=== PATIENT | male | born 1995 | race Caucasian/White ===

== ENCOUNTER 2019-08-26 02:00 | Emergency (ER) | payer MEDICAID ==
[~2019-08-26] VITALS: Ht 177.8 cm; Wt 88.9 kg
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
--- NOTE | 2019-08-26 04:02 | NUR ---
Patient discharged to home in stable condition. Written and verbal after care instructions given. Patient verbalizes understanding of instruction. Pt ambulatory with a steady gait
[2019-08-26 04:03] VITALS: BP 123/66
== END 2019-08-26 04:04 | disposition home or self-care (01) ==
LOC: ER 02:03
DX: S62.340A Nondisplaced fracture of base of second metacarpal bone, right hand, initial encounter for closed fracture (principal); W22.8XXA Striking against or struck by other objects, initial encounter; Y93.89 Activity, other specified; Y92.89 Other specified places as the place of occurrence of the external cause; Y99.8 Other external cause status
CPT/HCPCS: 73130-TC